=== PATIENT | male | born 1995 | race Two or more races ===

== ENCOUNTER 2024-12-03 14:18 | Emergency (ER) | payer MEDICAID, OTHER ==
[~2024-12-03] VITALS: Ht 175.3 cm; Wt 91.0 kg
[2024-12-03] MEDS: SODIUM CHLORIDE 0.9% 1,000 ML IV ONE (14:45)
--- NOTE | 2024-12-03 15:21 | ED.PDOC ---
History of Present Illness HPI Comments 29-year-old male who comes in with chief complaint of altered mental status. According to the paramedics, the patient was found in the restroom of a store somewhat altered. When the bystanders saw the patient he seemed to be significantly altered so 911 was called. The patient was given Narcan and seemed to respond somewhat. Upon arrival, the patient was stating that he did drink some alcohol as well as used some fentanyl. There is a chance that the patient also used crystal meth. The patient denies any vomiting or diarrhea. 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, IVF, Other (Narcan) Associated signs and symptoms Possible fentanyl overdose Past Medical History PAST MEDICAL HISTORY: Denies Surgical History: Denies all surgeries Family History Family History: No family hx of Cancer, No family hx of DM, No family hx of Heart eamon, No family hx of HTN Social History Smoker: Cigarettes Alcohol: Occasionally Drugs: Marijuana, Methamphetamine, Other (Fentanyl) Constitutional: denies: chills, diaphoresis, fatigue, fever, malaise, sweats, weakness, others EENTM: denies: blurred vision, double vision, ear bleeding, ear discharge, ear drainage, ear pain, ear ringing, eye pain, eye redness, hearing loss, mouth pain, mouth swelling, nasal discharge, nose bleeding, nose congestion, nose pain, photophobia, tearing, throat pain, throat swelling, voice changes, others Respiratory: denies: cough, hemoptysis, orthopnea, SOB at rest, shortness of breath, SOB with excertion, stridor, wheezing, others Cardiovascular: denies: chest pain, dizzy spells, diaphoresis, Dyspnea on exertion, edema, irregular heart beat, left arm pain, lightheadedness, palpitations, PND, syncope, others Gastrointestinal: denies: abdomen distended, abdominal pain, blood streaked bowels, constipated, diarrhea, dysphagia, difficulty swallowing, hematemesis, melena, nausea, poor appetite, poor fluid intake, rectal bleeding, rectal pain, vomiting, others Genitourinary: denies: burning, dysuria, flank pain, frequency, hematuria, incontinence, penile discharge, penile sore, pain, testicle pain, testicle swelling, urgency, others Neurological: reports: others (Possible overdose); denies: dizziness, fainting, headache, left sided numbness, left sided weakness, numbness, paresthesia, pre-existing deficit, right sided numbness, right sided weakness, seizure, speech problems, tingling, tremors, weakness Musculoskeletal: denies: back pain, gout, joint pain, joint swelling, muscle pain, muscle stiffness, neck pain, others Integumetry: denies: bruises, change in color, change in hair/nails, dryness, laceration, lesions, lumps, rash, wounds, others Allergic/Immunocompromised: denies: Difficulty Healing, Frequent Infections, Hives, Itching, others Hematologic/Lymphatic: denies: anemia, blood clots, easy bleeding, easy bruising, swollen glands, others Endocrine: denies: excessive hunger, excessive sweating, excessive thirst, excessive urination, flushing, intolerance to cold, intolerance to heat, unexplained weight gain, unexplained weight loss, others Psychiatric: denies: anxiety, bipolar disorder, depression, hopeless, panic disorder, schizophrenia, sleepless, suicidal, others Physical Exam General Appearance: Mild Distress HEENT: Normal ENT Inspection, Pharynx Normal, TMs Normal Neck: Full Range of Motion, Non-Tender, Normal, Normal Inspection Respiratory: Chest Non-Tender, Lungs Clear, No Accessory Muscle Use, No Respiratory Distress, Normal Breath Sounds Cardiovascular: No Edema, No JVD, No Murmur, No Gallop, Normal Peripheral Pulses, Regular Rate/Rhythm Breast Exam: Deferred Gastrointestinal: No Organomegaly, Non Tender, No Pulsatile Mass, Normal Bowel Sounds, Soft Genitalia: Deferred Pelvic: Deferred Rectal: Deferred Extremities: No calf tenderness, Normal capillary refill, Normal inspection, Normal range of motion, Non-tender, No pedal edema Musculoskeletal : Apperance: Normal 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 Was a procedure done?: No Differential Dx Considerations may include: Overdose generalized weakness X-Ray, Labs, Meds, VS Vital Signs Date Time Temp Pulse Resp B/P (MAP) Pulse Ox O2 Delivery O2 Flow Rate FiO2 12/03/24 16:13 61 20 100 Room Air* 0 21 12/03/24 15:59 97.9 66 20 97/61 (73) 100 97.9 12/03/24 15:59 61 20 100 Room Air 12/03/24 14:30 97.7 60 20 105/69 (81) 99 Lab Test 12/03/24 16:27 Range/Units White Blood Count 9.8 4.4-10.8 10^3/uL Red Blood Count 4.23 L 4.5-5.90 10^6/uL Hemoglobin 13.4 L 13.5-17.5 g/dL Hematocrit 40.1 L 41.0-53.0 % Mean Corpuscular Volume 94.8 80.0-100.0 fL Mean Corpuscular Hemoglobin 31.7 28.0-32.0 pg Mean Corpuscular Hemoglobin Concent 33.4 32.0-36.0 g/dL Red Cell Distribution Width 14.3 11.8-14.3 % Platelet Count 230 140-450 10^3/uL Mean Platelet Volume 6.9 6.9-10.8 fL Neutrophils (%) (Auto) 80.6 H 37.0-80.0 % Lymphocytes (%) (Auto) 13.9 10.0-50.0 % Monocytes (%) (Auto) 3.0 0.0-12.0 % Eosinophils (%) (Auto) 1.6 0.0-7.0 % Basophils (%) (Auto) 0.9 0.0-2.0 % Neutrophils # (Auto) 7.9 1.6-8.6 10 ^3/uL Lymphocytes # (Auto) 1.4 0.4-5.4 10 ^3/uL Monocytes # (Auto) 0.3 0-1.3 10 ^3/uL Eosinophils # (Auto) 0.2 0-0.8 10 ^3/uL Basophils # (Auto) 0.1 0-0.2 10 ^3/uL Nucleated Red Blood Cells 0.0 % Sodium Level 139 136-145 mmol/L Potassium Level 4.9 3.5-5.1 mmol/L Chloride Level 107 98-107 mmol/L Carbon Dioxide Level 25 20-31 mmol/L Anion Gap 7 5-15 Blood Urea Nitrogen 9 9-23 mg/dL Creatinine 0.79 0.700-1.30 mg/dL Glomerular Filtration Rate Calc 125 >90 mL/min BUN/Creatinine Ratio 11.4 10.0-20.0 Serum Glucose 99 74-106 mg/dL Calcium Level 9.9 8.7-10.4 mg/dL Plasma/Serum Blood Alcohol 14.0 H <10 mg/dL Current Medications Medications (Trade) Dose Ordered Sig/Deloris Route Start Time Stop Time Status Last Admin Sodium Chloride 1,000 ml @ 1,000 mls/hr Q1H ONCE IV 12/03/24 14:45 12/03/24 15:44 DC 12/03/24 14:45 IV Hep-Lock was established The patient was given 1 L bolus of normal saline The alcohol level is negative The patient's CBC and chemistry panel are within normal limits At this time, the patient is now more alert and able to answer all questions appropriately The patient will be discharged Time of 1ST Reevaluation: 19:47 Reevaluation 1ST: Improved Patient Education/Counseling: Diagnosis, Treatment, Prognosis, Need For Follow Up Family Education/Counseling: No Family Present Departure 1 Departure Time of Disposition: 19:47 Impression: Primary Impression: Accidental fentanyl overdose Qualified Codes: T40.411A - Poisoning by fentanyl or fentanyl analogs, accidental (unintentional), initial encounter Disposition: HOME / SELF CARE / HOMELESS Condition: Fair Discharged With: Self Critical Care Note Critical Care Time?: No Stability Stability form required: No Heart Score Heart Score: Heart Score Response (Comments) Value History N/A 0 EKG N/A 0 Age N/A 0 Risk Factors N/A 0 Troponin N/A 0 Total 0 MEEK BAUER MD Dec 03, 2024 15:21
[2024-12-03 16:13] VITALS: PULSE 61; RESP 20; O2SAT 100
[2024-12-03 16:45] LABS: Basophils # (auto) 0.1 10 ^3/uL (0-0.2); Basophils % (auto) 0.9 % (0.0-2.0); Eosinophils # (auto) 0.2 10 ^3/uL (0-0.8); Eosinophils % (auto) 1.6 % (0.0-7.0); Hematocrit 40.1 % (41.0-53.0); Hemoglobin 13.4 g/dL (13.5-17.5); Lymphocytes # (auto) 1.4 10 ^3/uL (0.4-5.4); Lymphocytes % (auto) 13.9 % (10.0-50.0); Mean Corpuscular Hemoglobin 31.7 pg (28.0-32.0); Mean Corpuscular Hgb Conc. 33.4 g/dL (32.0-36.0); Mean Corpuscular Volume 94.8 fL (80.0-100.0); Monocytes # (auto) 0.3 10 ^3/uL (0-1.3); Neutrophils # (auto) 7.9 10 ^3/uL (1.6-8.6); Neutrophils % (auto) 80.6 % (37.0-80.0); Platelet Count (auto) 230 10^3/uL (140-450); Red Blood Cells 4.23 10^6/uL (4.5-5.90); Red Cell Distribution Width 14.3 % (11.8-14.3); White Blood Cell 9.8 10^3/uL (4.4-10.8)
[2024-12-03 16:54] LABS: Potassium 4.9 mmol/L (3.5-5.1); Sodium 139 mmol/L (136-145)
[2024-12-03 16:55] LABS: Anion Gap 7 (5-15); Carbon Dioxide 25 mmol/L (20-31)
[2024-12-03 16:56] LABS: Calcium 9.9 mg/dL (8.7-10.4)
[2024-12-03 17:00] LABS: BUN/Creatinine Ratio 11.4 (10.0-20.0); Blood Urea Nitrogen 9 mg/dL (9-23); Glucose 99 mg/dL (74-106)
[2024-12-03 17:24] LABS: Chloride 107 mmol/L (98-107)
[2024-12-04 00:05] VITALS: BP 109/67; PULSE 66; RESP 20; TEMP 97.7; O2SAT 100
== END 2024-12-04 00:05 | disposition home or self-care (01) ==
LOC: EDBD 14:18 → ER 14:24
DX: T40.411A Poisoning by fentanyl or fentanyl analogs, accidental (unintentional), initial encounter (principal); F17.210 Nicotine dependence, cigarettes, uncomplicated; R41.82 Altered mental status, unspecified; Y92.89 Other specified places as the place of occurrence of the external cause
CPT/HCPCS: 36415; 80048; 80320; 85025; 96360; 99283; J7030